=== PATIENT | female | born 1975 | race Asian ===

== ENCOUNTER 2017-09-08 11:24 | Emergency (ER) | payer MEDICAID ==
[~2017-09-08] VITALS: Ht 149.9 cm; Wt 38.6 kg
[2017-09-08] MEDS ORDERED: HYDR-4061 PO (11:34)
[2017-09-08] MEDS ORDERED: TRAM50TA4 PO (11:34)
[2017-09-08] MEDS ORDERED: ALPR0.255 PO (11:34)
[2017-09-08] MEDS ORDERED: SODIUM CHLORIDE 0.9% 1,000 ML IV ONE (11:45)
[2017-09-08 11:59] LABS: HEMATOCRIT 31.6 % (36-46); HEMOGLOBIN 10.2 g/dL (12.0-16.0); MEAN CORPUSCULAR HEMOGLOBIN 21.3 pg (26.0-34.0); MEAN CORPUSCULAR HGB CONC 32.3 G/dL (31.0-37.0); MEAN CORPUSCULAR VOLUME 66 fL (80-100); PLATELET COUNT (AUTO) 202 K/uL (150-450); RED BLOOD CELL COUNT(AUTO) 4.78 MIL/uL (4.00-5.20); RED CELL DISTRIBUTION WIDTH 15.8 % (11.5-14.5); WHITE BLOOD COUNT (AUTO) 4.1 K/uL (4.5-11.0)
[2017-09-08 12:09] LABS: ANION GAP 8 mmol/L (8-16); CALCIUM, TOTAL 8.8 mg/dL (8.8-10.5); CARBON DIOXIDE 29 mmol/L (22-29); CHLORIDE 101 mmol/L (98-107); CREATININE 0.68 mg/dL (0.60-1.30); GLOMERULAR FILTR. RATE CALC > 60 mL/min (>60); POTASSIUM 3.3 mmol/L (3.5-5.1); SODIUM SERUM 138 mmol/L (136-145); UREA NITROGEN, BLOOD 18 mg/dL (7-18)
[2017-09-08 12:13] LABS: SALICYLATE 1.4 mg/dL (2.8-20.0)
[2017-09-08 12:15] LABS: ACETAMINOPHEN 19 mcg/mL (10-30); ALANINE AMINOTRANSFERASE 17 U/L (12-78); ALBUMIN 3.9 g/dL (3.4-5.0); ASPARTATE AMINOTRANSFERASE 12 U/L (15-37); BILIRUBIN,TOTAL 0.6 mg/dL (0.1-1.0); TOTAL PROTEIN, SERUM 7.4 g/dL (6.4-8.2)
[2017-09-08 12:35] LABS: LYMPHOCYTES % (MANUAL) 28 % (22-44); TOTAL CELLS COUNTED 100
[2017-09-08 12:36] LABS: RBC MORPHOLOGY COMMENT ABNORMAL R
[2017-09-08 14:33] LABS: GLUCOSE, URINE (UA) NEGATIVE (NEGATIVE); KETONES,URINE TRACE mg/dL (NEGATIVE); LEUKOCYTE ESTERASE ,URINE NEGATIVE (NEGATIVE); OCCULT BLOOD,URINE MODERATE (NEGATIVE); PH,URINE 5.5 (5.0-8.0); PROTEIN,URINE TRACE (NEGATIVE)
[2017-09-08 14:39] LABS: ADD UA MICROSCOPIC YES; APPEARANCE,URINE HAZY (CLEAR)
[2017-09-08 14:40] LABS: WBC,URINE 0-2 /HPF (0-5)
[2017-09-08 14:41] LABS: SQUAMOUS EPITHELIAL CELL,UR Moderate /LPF (None Seen)
[2017-09-08 17:33] VITALS: BP 127/76
== END 2017-09-08 17:38 | disposition home or self-care (01) ==
LOC: EMS 11:25
DX: T42.4X2A Poisoning by benzodiazepines, intentional self-harm, initial encounter (principal); F32.9 Major depressive disorder, single episode, unspecified; F15.10 Other stimulant abuse, uncomplicated; Y92.89 Other specified places as the place of occurrence of the external cause
CPT/HCPCS: 36415; 80053; 80307; 81001; 85025; 93005; 96360; 96361; 99285; G0480; J7030; G0481